=== PATIENT | female | born 1950 | race African-American/Black ===

== ENCOUNTER → 2016-12-30 | Outpatient (CLI) | payer MEDICARE, MEDICAID, OTHER ==
[~2016-12-30] MED LIST: ATROPINE 1% OP; BACTRIM DS 8001 TAB PO; BENZTROPINE1 MG PO; COGENTIN 1MG1 MG/TAB PO; DARVOCET-N-101 UDTAB PO; DEPAKOTE DR500 MG PO; DEPAKOTE500 MG PO; DILANTIN 100MG100 MG PO; DYAZIDE 25 MG-31 CAP PO; FENTANYL; FENTANYL 25 MCG TP; MOTRIN; MOTRIN 800800 MG/TAB PO; NEXIUM 40MG40 MG PO; NEXIUM PO; NEXIUM40 MG PO; NORCO 325 MG-7.1 TAB PO; PHENOBARBITAL; PHENOBARBITAL100 M1; PHENOBARBITAL32.4 MG PO; RISPERDAL 1M1 MG/TAB PO; VIMPAT100 MG PO; VIMPAT50 MG PO; [UNRECOGNIZED DRUG - OTHER]; [UNRECOGNIZED DRUG - OTHER]; [UNRECOGNIZED DRUG - OTHER]
[2016-12-30 16:32] LABS: BASO % 0.3 % (0.0-2.0); EOS # 0.1 (0.0-0.7); EOS % 1.7 % (0-4.0); GRAN % 46.2 % (42.2-75.2); HEMATOCRIT 39.8 % (37.0-47.0); HEMOGLOBIN 12.7 g/dl (12.5-16.0); LYMPH # 2.6 (1.2-3.4); LYMPH % 40.2 % (20.0-51.0); MEAN CELL VOLUME 98 fl (80.0-100.0); MEAN CORPUSCULAR HEMOGLOBIN 31 pg (27.0-31.0); MEAN CORPUSCULAR HGB CONC 32 g/dl (33.0-37.0); MEAN PLATELET VOLUME 9.7 fl (7.4-10.4); MONO # 0.8 (0.1-0.6); MONO % 11.6 % (1.7-9.3); PLATELET COUNT 185 K/mm3 (130-400); RED BLOOD COUNT 4.07 M/mm3 (4.10-5.30); REDCELL DISTRIBUTION WIDTH-CV 13.2 % (11.5-14.5); WHITE BLOOD COUNT 6.4 K/mm3 (4.8-10.8)
[2016-12-30 17:07] LABS: ADJUSTED CALCIUM 9.7 mg/dL (8.4-10.2); ALBUMIN 3.9 gm/dL (3.5-5.0); BILIRUBIN,TOTAL 0.5 mg/dL (0.0-1.0); CALCIUM 9.6 mg/dL (8.4-10.2); CREATININE, serum 0.88 mg/dL (0.52-1.25); POTASSIUM 3.9 mmol/L (3.4-5.0); TOTAL PROTEIN 7.6 gm/dL (6.4-8.2)
[2017-01-04 10:30] LABS: LACOSAMIDE 8.3 mcg/mL (())
== END ==
LOC: COL.LAB 16:07
PROVIDERS: Internal Medicine Cardiovascular Disease
DX: G40.89 Other seizures (principal)

== ENCOUNTER → 2017-11-07 | Outpatient (CLI) | payer MEDICARE, MEDICAID, OTHER ==
[2017-11-07 17:03] LABS: ALBUMIN 4.1 gm/dL (3.5-5.0); BILIRUBIN,TOTAL 0.4 mg/dL (0.0-1.0); CALCIUM 9.4 mg/dL (8.4-10.2); CREATININE, serum 0.79 mg/dL (0.52-1.25); POTASSIUM 3.8 mmol/L (3.4-5.0); TOTAL PROTEIN 7.6 gm/dL (6.4-8.2)
[2017-11-07 17:04] LABS: BASO % 0.3 % (0.0-2.0); EOS # 0.1 (0.0-0.7); EOS % 0.8 % (0-4.0); GRAN # 3.7 (1.4-6.5); HEMATOCRIT 38.7 % (37.0-47.0); HEMOGLOBIN 12.6 g/dl (12.5-16.0); LYMPH # 2.8 (1.2-3.4); LYMPH % 37.6 % (20.0-51.0); MEAN CELL VOLUME 98 fl (80.0-100.0); MEAN CORPUSCULAR HEMOGLOBIN 32 pg (27.0-31.0); MEAN CORPUSCULAR HGB CONC 33 g/dl (33.0-37.0); MEAN PLATELET VOLUME 9.9 fl (7.4-10.4); MONO # 0.9 (0.1-0.6); MONO % 12.2 % (1.7-9.3); PLATELET COUNT 190 K/mm3 (130-400); RED BLOOD COUNT 3.97 M/mm3 (4.10-5.30); REDCELL DISTRIBUTION WIDTH-CV 12.9 % (11.5-14.5)
[2017-11-07 17:08] LABS: VALPROIC ACID (DEPAKENE) 80.7 ug/mL (50.0-100.0)
[2017-11-07 23:24] LABS: PHENOBARBITAL 20 ug/mL (15-40)
== END ==
LOC: COL.LAB 16:16
PROVIDERS: Psychiatry & Neurology Neurology
DX: G40.409 Other generalized epilepsy and epileptic syndromes, not intractable, without status epilepticus (principal)

== ENCOUNTER → 2018-01-10 | Outpatient (CLI) | payer MEDICARE, MEDICAID, OTHER | LOC: MC.RAD 01-08 14:40 | DX: Z12.31 Encounter for screening mammogram for malignant neoplasm of breast (principal); M85.89 Other specified disorders of bone density and structure, multiple sites ==

== ENCOUNTER 2018-01-26 09:51 | Inpatient (IN) | payer MEDICARE, OTHER, MEDICAID ==
[2018-01-26] VITALS (565 sets, daily range): BP systolic 100–128; BP diastolic 71–86; PULSE 83–87; TEMP 96.7–98.7; O2SAT 93–100
[~2018-01-26] VITALS: Ht 170.2 cm; Wt 94.3 kg
[~2018-01-26 09:51] MED LIST changes: -ATROPINE 1% OP; +ATROPINE 2 ML2 ML PO
[2018-01-26 10:34] LABS: HEMATOCRIT 39.5 % (37.0-47.0); HEMOGLOBIN 13.1 g/dl (12.5-16.0); MEAN CELL VOLUME 94 fl (80.0-100.0); MEAN CORPUSCULAR HEMOGLOBIN 31 pg (27.0-31.0); MEAN CORPUSCULAR HGB CONC 33 g/dl (33.0-37.0); MEAN PLATELET VOLUME 9.6 fl (7.4-10.4); PLATELET COUNT 144 K/mm3 (130-400)
[2018-01-26 10:43] LABS: COLLECTION METHOD CLEAN CATCH
[2018-01-26 10:48] LABS: ALBUMIN 3.9 gm/dL (3.5-5.0); BILIRUBIN,TOTAL 0.5 mg/dL (0.0-1.0); CALCIUM 9.4 mg/dL (8.4-10.2); CREATININE, serum 1.54 mg/dL (0.52-1.25); POTASSIUM 4.3 mmol/L (3.4-5.0); TOTAL PROTEIN 7.5 gm/dL (6.4-8.2)
[2018-01-26 10:51] LABS: BAND 33 % (0-10); LYMPHOCYTE 14 % (20.0-51.0); METAMYELOCYTE 1 % (0-0); NEUTROPHILS 49 % (42.0-75.2)
[2018-01-26 10:52] LABS: PLATELET ESTIMATE NORMAL (NORMAL)
[2018-01-26 10:57] LABS: MUCOUS Present /lpf; PH 7 (5-8); URINE APPEARANCE Cloudy; URINE BACTERIA Rare /hpf; URINE BILIRUBIN Negative (NEGATIVE); URINE BLOOD Negative (NEGATIVE); URINE COLOR Yellow; URINE GLUCOSE Negative (NEGATIVE); URINE KETONE Trace (NEGATIVE); URINE LEUKOCYTE ESTERASE Trace (NEGATIVE); URINE NITRATE Negative (NEGATIVE); URINE PROTEIN(semi-quant) 1+ (NEGATIVE)
[2018-01-26] MEDS ORDERED: MYRBETR25MG PO (12:01)
[2018-01-26 12:39] LABS: INR 1.2 (0.8-3.0); PROTHROMBIN TIME 13.9 SECONDS (9.7-12.8)
[2018-01-26 15:00] LABS: ARTERIAL BLD GAS O2 SATURATION 93.9 % (92-100); ARTERIAL BLOOD GAS BASE EXCESS -1.6 (-2-2); ARTERIAL BLOOD GAS PCO2 33.7 mmHg (35-45); ARTERIAL BLOOD GAS PO2 72.3 mmHg (80-100); ARTERIAL BLOOD GAS pH 7.43 (7.35-7.45)
[2018-01-26 15:09] LABS: ARTERIAL BLOOD GAS pH 7.43 (7.35-7.45)
[2018-01-26 15:10] LABS: ARTERIAL BLD GAS O2 SATURATION 93.9 % (92-100); ARTERIAL BLOOD GAS BASE EXCESS -1.6 (-2-2); ARTERIAL BLOOD GAS PCO2 33.7 mmHg (35-45); ARTERIAL BLOOD GAS PO2 72.3 mmHg (80-100)
[2018-01-26] MEDS ORDERED: COLACE 100100 MG/CAP PO (18:35)
[2018-01-27] VITALS (1085 sets, daily range): BP systolic 97–131; BP diastolic 50–80; PULSE 70–92; TEMP 97.1–98.5; O2SAT 83–100
[2018-01-27 04:49] LABS: ARTERIAL BLD GAS O2 SATURATION 94.3 % (92-100); ARTERIAL BLOOD GAS BASE EXCESS -3.8 (-2-2); ARTERIAL BLOOD GAS PCO2 32.1 mmHg (35-45); ARTERIAL BLOOD GAS PO2 75.1 mmHg (80-100); ARTERIAL BLOOD GAS pH 7.41 (7.35-7.45)
[2018-01-27 06:12] LABS: MEAN CELL VOLUME 96 fl (80.0-100.0); MEAN CORPUSCULAR HGB CONC 33 g/dl (33.0-37.0); MEAN PLATELET VOLUME 9.9 fl (7.4-10.4); PLATELET COUNT 131 K/mm3 (130-400); RED BLOOD COUNT 3.51 M/mm3 (4.10-5.30); REDCELL DISTRIBUTION WIDTH-CV 13.2 % (11.5-14.5)
[2018-01-27 06:19] LABS: HEMATOCRIT 33.7 % (37.0-47.0); HEMOGLOBIN 11.1 g/dl (12.5-16.0); MEAN CORPUSCULAR HEMOGLOBIN 32 pg (27.0-31.0)
[2018-01-27 06:23] LABS: INR 1.2 (0.8-3.0); PROTHROMBIN TIME 13.9 SECONDS (9.7-12.8)
[2018-01-27 06:31] LABS: BILIRUBIN,TOTAL 0.3 mg/dL (0.0-1.0); CALCIUM 8.2 mg/dL (8.4-10.2); CREATININE, serum 0.76 mg/dL (0.52-1.25); POTASSIUM 3.6 mmol/L (3.4-5.0); TOTAL PROTEIN 6.1 gm/dL (6.4-8.2)
[2018-01-27 06:39] LABS: BAND 24 % (0-10); LYMPHOCYTE 24 % (20.0-51.0); NEUTROPHILS 35 % (42.0-75.2); PLATELET ESTIMATE NORMAL (NORMAL)
[2018-01-28 03:21] VITALS: BP 95/56; PULSE 66; TEMP 98.2
[2018-01-28 06:44] LABS: MEAN CELL VOLUME 96 fl (80.0-100.0); MEAN CORPUSCULAR HGB CONC 33 g/dl (33.0-37.0); MEAN PLATELET VOLUME 10.1 fl (7.4-10.4); PLATELET COUNT 125 K/mm3 (130-400); RED BLOOD COUNT 3.59 M/mm3 (4.10-5.30); REDCELL DISTRIBUTION WIDTH-CV 13.2 % (11.5-14.5)
[2018-01-28 06:55] LABS: HEMATOCRIT 34.4 % (37.0-47.0); HEMOGLOBIN 11.2 g/dl (12.5-16.0); MEAN CORPUSCULAR HEMOGLOBIN 31 pg (27.0-31.0)
[2018-01-28 07:02] LABS: ALBUMIN 3.1 gm/dL (3.5-5.0); BILIRUBIN,TOTAL 0.2 mg/dL (0.0-1.0); CALCIUM 8.7 mg/dL (8.4-10.2); CREATININE, serum 0.69 mg/dL (0.52-1.25); POTASSIUM 4.2 mmol/L (3.4-5.0); TOTAL PROTEIN 6.3 gm/dL (6.4-8.2)
[2018-01-28 07:17] LABS: INR 1.2 (0.8-3.0); PROTHROMBIN TIME 13.4 SECONDS (9.7-12.8)
[2018-01-28 08:27] VITALS: BP 123/83; PULSE 79; TEMP 97.3
[2018-01-28 08:36] LABS: BAND 12 % (0-10); HYPOCHROMIA 1+; LYMPHOCYTE 24 % (20.0-51.0); NEUTROPHILS 53 % (42.0-75.2); PLATELET ESTIMATE DECREASED (NORMAL)
[2018-01-28 12:50] VITALS: BP 125/70; PULSE 71; TEMP 98
[2018-01-28 14:03] LABS: FOLATE (FOLIC ACID) 7.7 ng/mL (7.0-31.4)
[2018-01-28 16:21] VITALS: BP 107/61; PULSE 77; TEMP 98.3
[2018-01-28 20:32] VITALS: BP 98/48; PULSE 80; TEMP 98.5
[2018-01-28 23:34] VITALS: BP 106/60; PULSE 72; TEMP 98
[2018-01-29 04:08] VITALS: BP 118/67; PULSE 74; TEMP 98.4
[2018-01-29 07:14] LABS: MEAN CELL VOLUME 96 fl (80.0-100.0); MEAN CORPUSCULAR HGB CONC 33 g/dl (33.0-37.0); MEAN PLATELET VOLUME 9.9 fl (7.4-10.4); PLATELET COUNT 125 K/mm3 (130-400); RED BLOOD COUNT 3.39 M/mm3 (4.10-5.30); REDCELL DISTRIBUTION WIDTH-CV 13.2 % (11.5-14.5)
[2018-01-29 07:16] LABS: HEMATOCRIT 32.4 % (37.0-47.0); HEMOGLOBIN 10.8 g/dl (12.5-16.0); MEAN CORPUSCULAR HEMOGLOBIN 32 pg (27.0-31.0)
[2018-01-29 07:24] LABS: ALBUMIN 2.8 gm/dL (3.5-5.0); BILIRUBIN,TOTAL 0.1 mg/dL (0.0-1.0); CALCIUM 8.6 mg/dL (8.4-10.2); CREATININE, serum 0.76 mg/dL (0.52-1.25); POTASSIUM 4.1 mmol/L (3.4-5.0); TOTAL PROTEIN 5.8 gm/dL (6.4-8.2)
[2018-01-29 07:28] LABS: INR 1.1 (0.8-3.0); PROTHROMBIN TIME 13.2 SECONDS (9.7-12.8)
[2018-01-29 08:00] LABS: BAND 2 % (0-10); LYMPHOCYTE 28 % (20.0-51.0); METAMYELOCYTE 3 % (0-0); MYELOCYTE 1 % (0-0); NEUTROPHILS 61 % (42.0-75.2)
[2018-01-29 08:03] VITALS: BP 115/71; PULSE 85; TEMP 98.2
[2018-01-29] MEDS ORDERED: OMNICEF 300MG300 MG PO (09:24)
== END 2018-01-29 11:23 | disposition home health service (06) | DRG 871 ==
LOC: COL.ER 09:51 → MEDICAL 11:24 → ICU 11:24 → MEDICAL 11:25 → ICU 13:10 → MEDICAL 01-27 18:45
PROVIDERS: Emergency Medicine; Internal Medicine; Physician Assistant
DX: A41.51 Sepsis due to Escherichia coli [E. coli] (principal); R65.21 Severe sepsis with septic shock; N39.0 Urinary tract infection, site not specified; N17.9 Acute kidney failure, unspecified; E87.2 Acidosis; E46 Unspecified protein-calorie malnutrition; B96.20 Unspecified Escherichia coli [E. coli] as the cause of diseases classified elsewhere; G80.9 Cerebral palsy, unspecified; F79 Unspecified intellectual disabilities; F20.9 Schizophrenia, unspecified; J06.9 Acute upper respiratory infection, unspecified; G40.909 Epilepsy, unspecified, not intractable, without status epilepticus; Z86.12 Personal history of poliomyelitis; D64.9 Anemia, unspecified; R73.9 Hyperglycemia, unspecified; E83.51 Hypocalcemia
CPT/HCPCS: 99222-AI; 99223-AI; 99232-AI; 99239; G8978-GP; G8979-GP; G8987-GO; G8988-GO; J0696; J1644; J1720; J7030

== ENCOUNTER → 2018-05-07 | Outpatient (REF) ==
[~2018-05-07] MED LIST changes: +CEFTIN500 MG PO; +COLACE 100100 MG/CAP PO; +MAXIMUM D310000 IU PO; +MYRBETR25MG PO; +MYRBETR50MG PO; +OMNICEF 300MG300 MG PO
[2018-05-07 17:09] LABS: VALPROIC ACID (DEPAKENE) 69.8 ug/mL (50.0-100.0)
[2018-05-07 17:12] LABS: THYROID STIMULATING HORMONE 1.18 uIU/mL (0.465-4.680)
== END ==
LOC: ZLAB.WCH 16:08
PROVIDERS: Internal Medicine
DX: Z01.89 Encounter for other specified special examinations (principal)

== ENCOUNTER → 2018-10-02 | Outpatient (CLI) | payer MEDICARE, OTHER, MEDICAID ==
[2018-10-02 16:29] LABS: BASO % 0.3 % (0.0-2.0); EOS % 0.5 % (0-4.0); GRAN # 3.9 (1.4-6.5); GRAN % 50.4 % (42.2-75.2); HEMATOCRIT 40.1 % (37.0-47.0); HEMOGLOBIN 13.1 g/dl (12.5-16.0); LYMPH # 2.9 (1.2-3.4); LYMPH % 36.8 % (20.0-51.0); MEAN CELL VOLUME 99 fl (80.0-100.0); MEAN CORPUSCULAR HEMOGLOBIN 32 pg (27.0-31.0); MEAN CORPUSCULAR HGB CONC 33 g/dl (33.0-37.0); MEAN PLATELET VOLUME 9.3 fl (7.4-10.4); MONO # 0.9 (0.1-0.6); MONO % 11.7 % (1.7-9.3); PLATELET COUNT 189 K/mm3 (130-400); RED BLOOD COUNT 4.07 M/mm3 (4.10-5.30)
[2018-10-02 16:42] LABS: BILIRUBIN,TOTAL 0.3 mg/dL (0.0-1.0); CALCIUM 9.3 mg/dL (8.4-10.2); CREATININE, serum 0.8 mg/dL (0.52-1.25); POTASSIUM 4.3 mmol/L (3.4-5.0); TOTAL PROTEIN 7.4 gm/dL (6.4-8.2)
[2018-10-02 17:16] LABS: VALPROIC ACID (DEPAKENE) 106.3 ug/mL (50.0-100.0)
[2018-10-03 19:28] LABS: PHENOBARBITAL 22 ug/mL (15-40)
== END ==
LOC: COL.LAB 16:07
PROVIDERS: Psychiatry & Neurology Neurology
DX: R56.9 Unspecified convulsions (principal)

== ENCOUNTER → 2018-10-25 | Outpatient (CLI) | payer MEDICARE, OTHER, MEDICAID ==
[2018-10-26 10:18] LABS: MUCOUS Present /lpf; PH 5 (5-8); URINE APPEARANCE Clear; URINE BACTERIA Occasional /hpf; URINE BILIRUBIN Negative (NEGATIVE); URINE BLOOD 1+ (NEGATIVE); URINE COLOR Yellow; URINE GLUCOSE Negative (NEGATIVE); URINE KETONE Trace (NEGATIVE); URINE LEUKOCYTE ESTERASE 2+ (NEGATIVE); URINE NITRATE Negative (NEGATIVE); URINE PROTEIN(semi-quant) 1+ (NEGATIVE); URINE RBC 20-50 /hpf; URINE WBC 20-50 /hpf
[2018-10-27 11:39] LABS: COLLECTION METHOD CLEAN CATCH
== END ==
LOC: COL.LAB 16:23
PROVIDERS: Internal Medicine
DX: N39.0 Urinary tract infection, site not specified (principal); N39.46 Mixed incontinence

== ENCOUNTER → 2018-12-11 | Outpatient (CLI) | payer MEDICARE, OTHER, MEDICAID ==
[2018-12-11 18:32] LABS: COLLECTION METHOD CATHETER
[2018-12-11 18:52] LABS: MUCOUS Present /lpf; PH 6 (5-8); URINE APPEARANCE Turbid; URINE BACTERIA Rare /hpf; URINE BILIRUBIN Negative (NEGATIVE); URINE BLOOD Negative (NEGATIVE); URINE COLOR Amber; URINE GLUCOSE Negative (NEGATIVE); URINE KETONE Trace (NEGATIVE); URINE LEUKOCYTE ESTERASE 3+ (NEGATIVE); URINE NITRATE Positive (NEGATIVE); URINE PROTEIN(semi-quant) 2+ (NEGATIVE); URINE RBC 20-50 /hpf; URINE WBC >50 /hpf
== END ==
LOC: COL.LAB 16:25
PROVIDERS: Internal Medicine
DX: N30.00 Acute cystitis without hematuria (principal); N39.46 Mixed incontinence

== ENCOUNTER 2019-07-05 11:59 | Outpatient (CLI) | payer MEDICARE, OTHER, MEDICAID ==
[~2019-07-05] VITALS: Ht 165.1 cm; Wt 95.4 kg
[~2019-07-05 11:59] MED LIST changes: +ATROPINE 2 ML2 ML OP; -ATROPINE 2 ML2 ML PO
[2019-07-05 12:33] VITALS: BP 122/85; PULSE 75; TEMP 98.2
[2019-07-05 13:28] LABS: COLLECTION METHOD CATHETER
[2019-07-05 13:34] LABS: BUDDING YEAST Present /hpf; MUCOUS Present /lpf; PH 6 (5-8); SQUAMOUS EPITHELIAL 0-2 /hpf; URINE APPEARANCE Hazy; URINE BACTERIA Occasional /hpf; URINE BILIRUBIN Negative (NEGATIVE); URINE BLOOD Negative (NEGATIVE); URINE COLOR Yellow; URINE GLUCOSE Negative (NEGATIVE); URINE KETONE Trace (NEGATIVE); URINE LEUKOCYTE ESTERASE 2+ (NEGATIVE); URINE NITRATE Positive (NEGATIVE); URINE PROTEIN(semi-quant) Negative (NEGATIVE); URINE RBC 0-2 /hpf; URINE UROBILINOGEN >=4.0 mg/dL (NEGATIVE)
== END 2019-07-05 13:50 | disposition home or self-care (01) ==
LOC: COL.LAB 11:59 → EUO 11:59
PROVIDERS: Internal Medicine
DX: N30.00 Acute cystitis without hematuria (principal); N39.46 Mixed incontinence

== ENCOUNTER → 2020-04-22 | Outpatient (CLI) | payer MEDICARE, OTHER, MEDICAID | LOC: MC.RAD 08:56 | DX: Z12.31 Encounter for screening mammogram for malignant neoplasm of breast (principal); N63.10 Unspecified lump in the right breast, unspecified quadrant; N63.20 Unspecified lump in the left breast, unspecified quadrant ==

== ENCOUNTER → 2020-04-29 | Outpatient (CLI) | payer MEDICARE, OTHER, MEDICAID | LOC: MC.RAD 08:58 | DX: N63.20 Unspecified lump in the left breast, unspecified quadrant (principal) ==

== ENCOUNTER → 2020-12-03 | Outpatient (CLI) | payer MEDICARE, OTHER, MEDICAID ==
[2020-12-03 14:38] LABS: COLLECTION METHOD CLEAN CATCH
[2020-12-03 15:04] LABS: MUCOUS Present /lpf; PH 6 (5-8); URINE APPEARANCE Cloudy; URINE BACTERIA Moderate /hpf; URINE BILIRUBIN Negative (NEGATIVE); URINE BLOOD Negative (NEGATIVE); URINE COLOR Yellow; URINE GLUCOSE Negative (NEGATIVE); URINE KETONE Trace (NEGATIVE); URINE LEUKOCYTE ESTERASE 3+ (NEGATIVE); URINE NITRATE Negative (NEGATIVE); URINE PROTEIN(semi-quant) 1+ (NEGATIVE); URINE UROBILINOGEN >=4.0 mg/dL (NEGATIVE)
== END ==
LOC: COL.LAB 12:08
DX: N39.0 Urinary tract infection, site not specified (principal)

== ENCOUNTER → 2021-04-13 | Outpatient (REF) ==
[~2021-04-13] MED LIST changes: +AZO-CRANBERRY450 MG PO; +DEPAKOTE 250MG250 MG PO; +FOSAMAX 70MG TA70 MG PO; +PROBIOTIC 2 BI1 EACH PO; +STOOL SOFTENER100 M2 PO; +VITAMIND3 5000 PO; +ZAROXOLYN 2.52.5 MG PO
== END ==
LOC: ZLAB.WCH 15:44
DX: Z01.89 Encounter for other specified special examinations (principal)

== ENCOUNTER 2021-05-24 13:27 | Observation (INO) | payer MEDICARE, OTHER, MEDICAID ==
[~2021-05-24] VITALS: Ht 165.1 cm; Wt 98.8 kg
[~2021-05-24 13:27] MED LIST changes: -AZO-CRANBERRY450 MG PO; -DEPAKOTE 250MG250 MG PO; -FOSAMAX 70MG TA70 MG PO; -PROBIOTIC 2 BI1 EACH PO; -STOOL SOFTENER100 M2 PO; -VITAMIND3 5000 PO; -ZAROXOLYN 2.52.5 MG PO
[2021-05-24 14:08] LABS: BASO % 0.3 % (0.0-2.0); GRAN # 5.7 (1.4-6.5); GRAN % 76.5 % (42.2-75.2); HEMATOCRIT 38.4 % (37.0-47.0); HEMOGLOBIN 13.1 g/dl (12.5-16.0); LYMPH # 0.9 (1.2-3.4); MEAN CELL VOLUME 93 fl (80.0-100.0); MEAN CORPUSCULAR HEMOGLOBIN 32 pg (27.0-31.0); MEAN CORPUSCULAR HGB CONC 34 g/dl (33.0-37.0); MEAN PLATELET VOLUME 9.3 fl (7.4-10.4); MONO # 0.8 (0.1-0.6); MONO % 10.8 % (1.7-9.3); PLATELET COUNT 175 K/mm3 (130-400); RED BLOOD COUNT 4.15 M/mm3 (4.10-5.30); REDCELL DISTRIBUTION WIDTH-CV 12.4 % (11.5-14.5)
[2021-05-24 14:11] LABS: COLLECTION METHOD CATHETER
[2021-05-24 14:15] LABS: INR 1.2 (0.8-3.0); PROTHROMBIN TIME 13.1 SECONDS (9.7-12.8)
[2021-05-24 14:21] LABS: LACTIC ACID 1.6 mmol/L (0.4-2.0)
[2021-05-24 14:22] LABS: MUCOUS Present /lpf; PH 7 (5-8); URINE APPEARANCE Clear; URINE BACTERIA None Seen /hpf; URINE BILIRUBIN Negative (NEGATIVE); URINE BLOOD Negative (NEGATIVE); URINE COLOR Yellow; URINE GLUCOSE Negative (NEGATIVE); URINE KETONE Trace (NEGATIVE); URINE LEUKOCYTE ESTERASE Negative (NEGATIVE); URINE NITRATE Negative (NEGATIVE); URINE PROTEIN(semi-quant) Negative (NEGATIVE)
[2021-05-24 14:26] LABS: TRICYCLIC ANTIDEPRESS URINE NEGATIVE
[2021-05-24 14:27] LABS: ALANINE AMINOTRANSFERASE 41 U/L (4-34); ALKALINE PHOSPHATASE 61 U/L (50-136); ANION GAP 8 mmol/L (7-16); AST,SGOT 190 U/L (15-37); BILIRUBIN,TOTAL 0.3 mg/dL (0.0-1.0); BLOOD UREA NITROGEN 13 mg/dL (7-17); CALCIUM 9.5 mg/dL (8.4-10.2); CARBON DIOXIDE 27 mmol/L (22-30); CHLORIDE 92 mmol/L (98-107); CREATININE, serum 0.67 (0.52-1.25); GLUCOSE 155 mg/dL (74-106); POTASSIUM 3.2 mmol/L (3.4-5.0); SODIUM 128 mmol/L (137-145); TOTAL PROTEIN 7.3 gm/dL (6.4-8.2)
[2021-05-24 14:29] LABS: ALCOHOL(ethanol),MEDICAL < 10 mg/dL
[2021-05-24 14:32] LABS: VALPROIC ACID (DEPAKENE) 84.8 ug/mL (50.0-100.0)
[2021-05-24 14:39] LABS: TROPONIN-I 0.016 ng/mL (0.000-0.035)
[2021-05-24] MEDS ORDERED: PHENOBARBITAL32.4 MG PO (17:30)
[2021-05-24] MEDS ORDERED: VITAMIND3 5000 PO (17:33)
[2021-05-24] MEDS ORDERED: STOOL SOFTENER100 M2 PO (17:33)
[2021-05-24] MEDS ORDERED: AZO-CRANBERRY450 MG PO (20:17)
[2021-05-24] MEDS ORDERED: PROBIOTIC 2 BI1 EACH PO (20:23)
[2021-05-24] MEDS ORDERED: DEPAKOTE 250MG250 MG PO (20:27)
[2021-05-24] MEDS ORDERED: ZAROXOLYN 2.52.5 MG PO (20:28)
[2021-05-24] MEDS ORDERED: FOSAMAX 70MG TA70 MG PO (20:30)
--- NOTE | 2021-05-24 20:30 | NUR ---
Arrived to room 346 via stretcher from ED. Transferred to bed with three assist. Med rec complete with the help of caregiver-patients sister. Admission assessment complete. VS stable. Is alert but not oriented. Unable to follow commands or answer questions. INT to right and left AC flush without difficulty. Plan of care discussed with sister for IV fluids and replacing potassium over night. Verbalizes understanding/denies questions/concerns. Call light in reach. Will monitor.
--- NOTE | 2021-05-24 21:45 | NUR ---
Large amount of emesis at this time-clear thick fluid. Bedbath given-linens changed. Phenergan ordered and given per dr order. Repositioned in bed. Call light in reach/bed alarm on. Will monitor.
[2021-05-25] VITALS (7 sets, daily range): BP systolic 102–132; BP diastolic 55–82; PULSE 70–91; TEMP 97.1–100
[2021-05-25 00:42] LABS: CALCIUM 8.5 mg/dL (8.4-10.2); CREATININE, serum 0.65 (0.52-1.25); POTASSIUM 3.3 mmol/L (3.4-5.0)
--- NOTE | 2021-05-25 04:51 | NUR ---
Incontinent of urine-large amount. Bed bath given/linens changed. Purewick placed. Repositioned in bed-feet elevated due to swelling. Denies nausea at this time-asking when dinner will be ready. Denies current needs. Call light in reach. Will monitor.
[2021-05-25 07:24] LABS: GRAN # 4.9 (1.4-6.5); HEMATOCRIT 37.4 % (37.0-47.0); HEMOGLOBIN 12.6 g/dl (12.5-16.0); LYMPH # 1.8 (1.2-3.4); LYMPH % 23.2 % (20.0-51.0); MEAN CELL VOLUME 93 fl (80.0-100.0); MEAN CORPUSCULAR HEMOGLOBIN 31 pg (27.0-31.0); MEAN CORPUSCULAR HGB CONC 34 g/dl (33.0-37.0); MEAN PLATELET VOLUME 10.1 fl (7.4-10.4); MONO # 1.2 (0.1-0.6); MONO % 14.5 % (1.7-9.3); PLATELET COUNT 168 K/mm3 (130-400); RED BLOOD COUNT 4.01 M/mm3 (4.10-5.30); REDCELL DISTRIBUTION WIDTH-CV 12.6 % (11.5-14.5)
[2021-05-25 07:33] LABS: CALCIUM 8.6 mg/dL (8.4-10.2); CREATININE, serum 0.65 (0.52-1.25); POTASSIUM 3.6 mmol/L (3.4-5.0)
[2021-05-25 10:22] LABS: CALCIUM 8.6 mg/dL (8.4-10.2); CREATININE, serum 0.63 (0.52-1.25); MAGNESIUM 2.3 mg/dL (1.6-2.3); POTASSIUM 3.6 mmol/L (3.4-5.0)
--- NOTE | 2021-05-25 12:00 | NUR ---
Patient sister is here. Patient is not able to answer most questions. She can answer some yes and no basic questions. Denies pain and nausea this morning. Stated she is starving. She slept most the morning and was hard to wake at times. Her sister said she usually wakes up early, explained might be the medications and not feeling well. She worked with ST, she was able to take her medications without issues. Pills given whole in pudding, she did not have any issues. Her sister was helping her eat lunch. 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 Purewick in place, no other changes at this time. Call light within reach.
--- NOTE | 2021-05-25 13:49 | NUR ---
Initial visit; Patient thanked Energy Assistant for looking in on her, offering prayer and god's blessings.
--- NOTE | 2021-05-25 14:10 | NUR ---
Sw met with the pt. The pt was delayed in answering some of my questions. The pt informed Kyleigh that she lives at home with her sister, Bhavani Roman (ph# [phone]). The pt informed Kyleigh that she has a wheelchair and cane. The pt did not know where she gets her medications, but in the charts it states [facility] and her PCP is Dr. Campbell. No other needs stated at this time. Sw to wait further recommendations and follow up as needed. Her sister was not in the room. Her sister wanted to know if she could have HH services go to [facility]? Sw called Bhavani and she informed Sw that her sister goes to [facility] from 7am-4:15pm everyday and she was wondering if HH with PT would come to [facility] or pick her up. Sw informed Bhavani she would call [facility] to see if they offered PT their and would get back to her tommorrow. Kyleigh called [facility] and they do not offer PT/OT services, but the nurse informed Kyleigh that she would pass my number to her engineering design supervisor to see if HH would be allowed to come in to give her services. Sw to await phone call. D/c: Home with Family, pending HH services.
--- NOTE | 2021-05-25 22:22 | NUR ---
Patient temp is 100.0/ giving sponge bath and down to 99.5. Lea notified and she will put order for Tylenol.
[2021-05-26 00:05] VITALS: BP 114/52; PULSE 87; TEMP 99.9
[2021-05-26 04:20] VITALS: BP 106/58; PULSE 73; TEMP 99.1
[2021-05-26 07:00] LABS: BASO % 0.3 % (0.0-2.0); EOS % 0.2 % (0-4.0); GRAN # 2.7 (1.4-6.5); GRAN % 45.7 % (42.2-75.2); HEMOGLOBIN 11.1 g/dl (12.5-16.0); LYMPH # 2.2 (1.2-3.4); LYMPH % 38.4 % (20.0-51.0); MEAN CELL VOLUME 96 fl (80.0-100.0); MEAN CORPUSCULAR HEMOGLOBIN 32 pg (27.0-31.0); MEAN CORPUSCULAR HGB CONC 33 g/dl (33.0-37.0); MEAN PLATELET VOLUME 9.8 fl (7.4-10.4); MONO # 0.9 (0.1-0.6); MONO % 15.2 % (1.7-9.3); PLATELET COUNT 158 K/mm3 (130-400); RED BLOOD COUNT 3.49 M/mm3 (4.10-5.30); REDCELL DISTRIBUTION WIDTH-CV 12.9 % (11.5-14.5)
[2021-05-26 07:08] LABS: HEMATOCRIT 33.6 % (37.0-47.0)
[2021-05-26 07:24] LABS: CALCIUM 8.3 mg/dL (8.4-10.2); CREATININE, serum 0.63 (0.52-1.25); POTASSIUM 3.7 mmol/L (3.4-5.0)
[2021-05-26 07:28] VITALS: BP 107/58; PULSE 65; TEMP 98.3
--- NOTE | 2021-05-26 10:34 | NUR ---
Kyleigh spoke with sister of pt about HH options. Sw faxed over d/c orders to [facility] for PT services. Pt d/c today 05/26. Sw to await and follow up.
--- NOTE | 2021-05-26 11:45 | NUR ---
Patient is discharging home. Discharge instructions discussed with her sister. No questions verbalized. INT's discontinued. Her sister is packing up her belongings. Copies of discharge instructions sent with patient. Explained home health will call with meeting time for the sister. No questions verbalized. Patient walked out via wheel chair by Suzi REYES.
--- NOTE | 2021-05-26 13:58 | NUR ---
Kyleigh made referral for HH services for pt at [facility]. [facility] called me back and informed Sw that they cannot go to [facility] to provides services for the pt. She informed Sw that she called the pt Bhavani duff and she informed HH worker that she spoke with [facility] and they can provide the pt with PT services. DPOA Bhavani will not be using HH services at this time because she does not want to uproot the pt from going to her daily visits with [facility] and HH cannot come to [facility]. Kyleigh will stand by if needed.
== END 2021-05-26 11:45 | disposition home or self-care (01) ==
LOC: COL.ER 13:27 → SURG 19:10
PROVIDERS: Emergency Medicine; Physician Assistant; Student in an Organized Health Care Education/Training Program; ADMIT Family Medicine
DX: G93.40 Encephalopathy, unspecified (principal); R11.2 Nausea with vomiting, unspecified; G80.9 Cerebral palsy, unspecified; F79 Unspecified intellectual disabilities; G40.901 Epilepsy, unspecified, not intractable, with status epilepticus; F20.9 Schizophrenia, unspecified; P74.22 Hyponatremia of newborn; D64.9 Anemia, unspecified; E87.6 Hypokalemia; K21.9 Gastro-esophageal reflux disease without esophagitis; Z86.12 Personal history of poliomyelitis; Z79.899 Other long term (current) drug therapy; Z20.822 Contact with and (suspected) exposure to COVID-19
CPT/HCPCS: 99223-AI; C9113; G0378; J1650; J2405; J2550; J3475; J3480; J7030; Q9967

== ENCOUNTER → 2021-08-06 | Outpatient (CLI) | payer MEDICARE, OTHER, MEDICAID ==
[~2021-08-06] MED LIST changes: +AZO-CRANBERRY450 MG PO; +DEPAKOTE 250MG250 MG PO; +FOSAMAX 70MG TA70 MG PO; +PROBIOTIC 2 BI1 EACH PO; +STOOL SOFTENER100 M2 PO; +VITAMIND3 5000 PO; +ZAROXOLYN 2.52.5 MG PO
[2021-08-06 15:00] LABS: BASO % 0.3 % (0.0-2.0); EOS # 0.1 K/mm3 (0.0-0.7); GRAN # 3.2 K/mm3 (1.4-6.5); HEMOGLOBIN 12.7 g/dl (12.5-16.0); LYMPH % 33.2 % (20.0-51.0); MEAN CELL VOLUME 98 fl (80.0-100.0); MEAN CORPUSCULAR HEMOGLOBIN 32 pg (27.0-31.0); MEAN CORPUSCULAR HGB CONC 33 g/dl (33.0-37.0); MEAN PLATELET VOLUME 9.3 fl (7.4-10.4); MONO # 0.8 K/mm3 (0.1-0.6); MONO % 12.3 % (1.7-9.3); PLATELET COUNT 181 K/mm3 (130-400); REDCELL DISTRIBUTION WIDTH-CV 12.7 % (11.5-14.5)
[2021-08-06 15:29] LABS: ALBUMIN 3.4 gm/dL (3.4-4.8); BILIRUBIN,TOTAL 0.2 mg/dL (0.2-1.2); CALCIUM 9.2 mg/dL (8.4-10.2); CREATININE, serum 0.89 mg/dL (0.57-1.11); POTASSIUM 3.9 mmol/L (3.5-4.5); TOTAL PROTEIN 6.7 gm/dL (6.2-8.1); VALPROIC ACID (DEPAKENE) 63.9 ug/mL (43.5-90.5)
== END ==
LOC: COL.LAB 14:31
PROVIDERS: Psychiatry & Neurology Neurology
DX: Z79.899 Other long term (current) drug therapy (principal); G40.909 Epilepsy, unspecified, not intractable, without status epilepticus

== ENCOUNTER 2022-04-03 10:54 | Emergency (ER) | payer MEDICARE, OTHER, MEDICAID ==
[~2022-04-03] VITALS: Ht 165.1 cm; Wt 93.2 kg
[2022-04-03 10:58] VITALS: TEMP 98.1
[2022-04-03 11:20] LABS: BASO % 0.1 % (0.0-2.0); EOS % 0.1 % (0.0-4.0); GRAN # 7.2 K/mm3 (1.4-6.5); GRAN % 75.4 % (42.2-75.2); HEMOGLOBIN 12.9 g/dl (12.5-16.0); LYMPH # 1.2 K/mm3 (1.2-3.4); LYMPH % 12.8 % (20.0-51.0); MEAN CELL VOLUME 96 fl (80.0-100.0); MEAN CORPUSCULAR HEMOGLOBIN 32 pg (27-31); MEAN CORPUSCULAR HGB CONC 33 g/dl (33.0-37.0); MEAN PLATELET VOLUME 9.2 fl (7.4-10.4); MONO # 1.1 K/mm3 (0.1-0.6); MONO % 11.3 % (1.7-9.3); PLATELET COUNT 166 K/mm3 (130-400); RED BLOOD COUNT 4.06 M/mm3 (4.10-5.30); REDCELL DISTRIBUTION WIDTH-CV 13.1 % (11.5-14.5)
[2022-04-03 11:41] LABS: ALBUMIN 3.5 gm/dL (3.4-4.8); BILIRUBIN,TOTAL 0.4 mg/dL (0.2-1.2); CALCIUM 9.3 mg/dL (8.4-10.2); CREATININE, serum 0.98 mg/dL (0.57-1.11); POTASSIUM 3.9 mmol/L (3.5-4.5); TOTAL PROTEIN 6.7 gm/dL (6.2-8.1)
[2022-04-03 11:45] LABS: COLLECTION METHOD CATHETER
[2022-04-03 11:58] LABS: MUCOUS Present (NOT PRESENT); PH 6 (5-8); URINE APPEARANCE Hazy (CLEAR/HAZY); URINE BACTERIA Rare /hpf (NONE SEEN); URINE BILIRUBIN Negative (NEGATIVE); URINE BLOOD Negative (NEGATIVE); URINE COLOR Yellow (YELLOW); URINE GLUCOSE Negative (NEGATIVE); URINE KETONE Trace (NEGATIVE); URINE LEUKOCYTE ESTERASE Negative (NEGATIVE); URINE NITRATE Negative (NEGATIVE); URINE PROTEIN(semi-quant) 1+ (NEGATIVE); URINE UROBILINOGEN Negative (NEGATIVE)
[2022-04-03 14:49] VITALS: BP 136/83; PULSE 88
[2022-04-04] MEDS ORDERED: CEPHALEXIN500 M1 PO (20:21)
[2022-04-04] MEDS ORDERED: ATROPINE 2 ML2 ML OU (20:22)
[2022-04-04] MEDS ORDERED: NORCO 325 MG-7.1 TAB PO (20:22)
[2022-04-05] MEDS ORDERED: ATROPINE 2 ML2 ML PO (10:39)
== END 2022-04-03 14:49 | disposition home or self-care (01) ==
LOC: COL.ER 10:54
PROVIDERS: Nurse Practitioner
DX: I95.9 Hypotension, unspecified (principal)
CPT/HCPCS: J7030

== ENCOUNTER 2022-05-16 18:42 | Emergency (ER) | payer MEDICARE, OTHER, MEDICAID ==
[~2022-05-16] VITALS: Ht 162.6 cm; Wt 97.7 kg
[~2022-05-16 18:42] MED LIST changes: +ATROPINE 2 ML2 ML OU; +ATROPINE 2 ML2 ML PO; +CEPHALEXIN500 M1 PO
[2022-05-16 18:53] VITALS: TEMP 97.7
[2022-05-16 20:51] LABS: BASO % 0.3 % (0.0-2.0); EOS % 0.3 % (0.0-4.0); GRAN # 3.7 K/mm3 (1.4-6.5); GRAN % 53.6 % (42.2-75.2); HEMOGLOBIN 11.7 g/dl (12.5-16.0); LYMPH # 2.1 K/mm3 (1.2-3.4); LYMPH % 30.4 % (20.0-51.0); MEAN CELL VOLUME 97 fl (80.0-100.0); MEAN CORPUSCULAR HEMOGLOBIN 32 pg (27-31); MEAN CORPUSCULAR HGB CONC 33 g/dl (33.0-37.0); MEAN PLATELET VOLUME 8.7 fl (7.4-10.4); MONO % 15.1 % (1.7-9.3); PLATELET COUNT 325 K/mm3 (130-400); REDCELL DISTRIBUTION WIDTH-CV 13.2 % (11.5-14.5)
[2022-05-16 20:58] LABS: HEMATOCRIT 35.9 % (37.0-47.0)
[2022-05-16 21:11] LABS: ALANINE AMINOTRANSFERASE 9 U/L (0-55); ALBUMIN 3.5 gm/dL (3.4-4.8); ALKALINE PHOSPHATASE 205 U/L (40-150); ANION GAP 15 mmol/L (7-16); AST,SGOT 20 U/L (5-34); BILIRUBIN,TOTAL 0.3 mg/dL (0.2-1.2); BLOOD UREA NITROGEN 9 mg/dL (10-20); CALCIUM 9.4 mg/dL (8.4-10.2); CARBON DIOXIDE 22 mmol/L (23-31); CHLORIDE 102 mmol/L (98-107); GLUCOSE 103 mg/dL (70-99); POTASSIUM 4.2 mmol/L (3.5-4.5); SODIUM 139 mmol/L (136-145); TOTAL PROTEIN 7.2 gm/dL (6.2-8.1)
[2022-05-16 21:21] LABS: TROPONIN-I < 0.010 ng/mL (0.00-0.033)
[2022-05-16 22:48] LABS: COLLECTION METHOD CLEAN CATCH
[2022-05-16 22:55] LABS: MUCOUS Present (NOT PRESENT); PH 5 (5-8); SQUAMOUS EPITHELIAL 20-50 /hpf (0-10); URINE APPEARANCE Cloudy (CLEAR/HAZY); URINE BACTERIA Rare /hpf (NONE SEEN); URINE BLOOD Negative (NEGATIVE); URINE COLOR Yellow (YELLOW); URINE GLUCOSE Negative (NEGATIVE); URINE KETONE Trace (NEGATIVE); URINE NITRATE Negative (NEGATIVE); URINE PROTEIN(semi-quant) 1+ (NEGATIVE); URINE RBC 0-2 /hpf (0-2)
[2022-05-16] MEDS ORDERED: CEPHALEXIN500 M1 PO (23:01)
[2022-05-16 23:20] VITALS: BP 127/57; PULSE 85
== END 2022-05-16 23:20 | disposition home or self-care (01) ==
LOC: COL.ER 18:42
PROVIDERS: Emergency Medicine
DX: M79.89 Other specified soft tissue disorders (principal); N39.0 Urinary tract infection, site not specified; Z20.822 Contact with and (suspected) exposure to COVID-19
CPT/HCPCS: J1940

== ENCOUNTER 2022-06-14 15:43 | Outpatient (CLI) | payer MEDICARE, OTHER, MEDICAID ==
[2022-06-14 16:17] VITALS: BP 122/91; PULSE 95; TEMP 98.8
[2022-06-14 16:22] LABS: COLLECTION METHOD CATHETER
[2022-06-14 16:39] LABS: MUCOUS Present (NOT PRESENT); URINE APPEARANCE Hazy (CLEAR/HAZY); URINE BACTERIA Rare /hpf (NONE SEEN); URINE BLOOD TRACE-INTACT (NEGATIVE); URINE COLOR Yellow (YELLOW); URINE GLUCOSE Negative (NEGATIVE); URINE KETONE TRACE (NEGATIVE); URINE NITRATE Negative (NEGATIVE); URINE PROTEIN(semi-quant) Negative (NEGATIVE); URINE RBC 0-2 /hpf (0-2); URINE UROBILINOGEN 0.2 E.U/dL (0.2-1.0)
== END 2022-06-14 16:40 | disposition home or self-care (01) ==
LOC: EUO 15:43
PROVIDERS: Internal Medicine
DX: R33.8 Other retention of urine (principal)

== ENCOUNTER → 2022-09-08 | Outpatient (CLI) | payer MEDICARE, OTHER, MEDICAID | LOC: COL.RAD 13:00 → COL.CARD 09-12 10:00 → COL.RAD 09-13 13:00 → COL.CARD 09-13 13:00 → COL.RAD 09-13 15:00 | DX: J32.2 Chronic ethmoidal sinusitis (principal); G80.9 Cerebral palsy, unspecified; G40.419 Other generalized epilepsy and epileptic syndromes, intractable, without status epilepticus; M62.81 Muscle weakness (generalized); G31.9 Degenerative disease of nervous system, unspecified; I67.82 Cerebral ischemia; I63.512 Cerebral infarction due to unspecified occlusion or stenosis of left middle cerebral artery; Z79.899 Other long term (current) drug therapy ==

== ENCOUNTER 2022-11-08 10:17 | Outpatient (RCR) | payer MEDICARE, OTHER, MEDICAID ==
[2022-12-15] MEDS ORDERED: MOBIC15 MG PO (18:50)
[2022-12-15] MEDS ORDERED: PLAVIX 75MG TAB75 MG PO (18:51)
[2022-12-15] MEDS ORDERED: LIORESAL 1010 MG/TAB (18:51)
[2022-12-15] MEDS ORDERED: PHENOBARBITAL32.4 MG PO (21:21)
[2022-12-15] MEDS ORDERED: D3-5050000 IU PO (21:24)
[2022-12-15] MEDS ORDERED: VIMPAT200 MG PO (21:26)
== END 2022-11-29 | disposition still patient (30) ==
LOC: MKS.ESL.OT
DX: G80.9 Cerebral palsy, unspecified (principal)

== ENCOUNTER → 2022-12-06 | Outpatient (CLI) | payer MEDICARE, OTHER, MEDICAID | LOC: MHCPAIN 14:25 | DX: M79.604 Pain in right leg (principal); M15.0 Primary generalized (osteo)arthritis; M16.31 Unilateral osteoarthritis resulting from hip dysplasia, right hip; G80.9 Cerebral palsy, unspecified; G81.90 Hemiplegia, unspecified affecting unspecified side; R68.89 Other general symptoms and signs | CPT/HCPCS: G0463 ==

== ENCOUNTER 2023-02-15 09:24 | Outpatient (RCR) | payer MEDICARE, OTHER, MEDICAID ==
[~2023-02-15 09:24] MED LIST changes: +D3-5050000 IU PO; +LIORESAL 1010 MG/TAB; +MOBIC15 MG PO; +PLAVIX 75MG TAB75 MG PO; +VIMPAT200 MG PO
== END 2023-02-26 | disposition home or self-care (01) ==
LOC: MKS.ESL.PT
DX: G80.1 Spastic diplegic cerebral palsy (principal)

== ENCOUNTER 2023-06-20 09:00 | Outpatient (RCR) | payer MEDICARE, OTHER, MEDICAID | END 2023-06-29 | disposition home or self-care (01) | LOC: MKS.ESL.PT | DX: G80.1 Spastic diplegic cerebral palsy (principal) ==

== ENCOUNTER → 2023-08-16 | Outpatient (CLI) | payer MEDICARE, OTHER, MEDICAID ==
[2023-08-16 11:23] LABS: BASO % 0.2 % (0.0-2.0); EOS % 0.5 % (0.0-4.0); GRAN # 2.3 K/mm3 (1.4-6.5); GRAN % 55.5 % (42.2-75.2); HEMATOCRIT 39.1 % (37.0-47.0); HEMOGLOBIN 13.3 g/dl (12.5-16.0); LYMPH # 1.2 K/mm3 (1.2-3.4); LYMPH % 27.9 % (20.0-51.0); MEAN CELL VOLUME 94 fl (80.0-100.0); MEAN CORPUSCULAR HEMOGLOBIN 32 pg (27-31); MEAN CORPUSCULAR HGB CONC 34 g/dl (33.0-37.0); MEAN PLATELET VOLUME 9.1 fl (7.4-10.4); MONO # 0.7 K/mm3 (0.1-0.6); MONO % 15.7 % (1.7-9.3); PLATELET COUNT 171 K/mm3 (130-400); RED BLOOD COUNT 4.14 M/mm3 (4.10-5.30); REDCELL DISTRIBUTION WIDTH-CV 12.6 % (11.5-14.5)
[2023-08-16 11:43] LABS: ALBUMIN 3.5 gm/dL (3.4-4.8); BILIRUBIN,TOTAL 0.4 mg/dL (0.2-1.2); CALCIUM 9.6 mg/dL (8.4-10.2); CREATININE, serum 0.74 mg/dL (0.57-1.11); TOTAL PROTEIN 6.7 gm/dL (6.2-8.1); VALPROIC ACID (DEPAKENE) 67.8 ug/mL (43.5-90.5)
[2023-08-16 11:54] LABS: MAGNESIUM 1.6 mg/dL (1.6-2.6)
[2023-08-16 12:14] LABS: THYROID STIMULATING HORMONE 2.302 uIU/mL (0.350-4.940)
[2023-08-16 15:55] LABS: COLLECTION METHOD CLEAN CATCH
[2023-08-16 16:13] LABS: URINE APPEARANCE Cloudy (CLEAR/HAZY); URINE COLOR Yellow (YELLOW)
[2023-08-16 16:14] LABS: URINE BACTERIA Many /hpf (NONE SEEN); URINE BLOOD TRACE-LYSED (NEGATIVE); URINE GLUCOSE Negative (NEGATIVE); URINE KETONE Negative (NEGATIVE); URINE NITRATE Negative (NEGATIVE); URINE PROTEIN(semi-quant) Negative (NEGATIVE); URINE RBC 0-2 /hpf (0-2); URINE UROBILINOGEN 0.2 E.U/dL (0.2-1.0)
[2023-08-16 21:59] LABS: PHENOBARBITAL 30 ug/mL (15-40)
== END ==
LOC: COL.LAB 10:43 → COL.RAD 10:43
PROVIDERS: Internal Medicine
DX: M81.0 Age-related osteoporosis without current pathological fracture (principal); M15.0 Primary generalized (osteo)arthritis; G80.0 Spastic quadriplegic cerebral palsy; M41.25 Other idiopathic scoliosis, thoracolumbar region; K90.9 Intestinal malabsorption, unspecified; N39.46 Mixed incontinence; M54.51 Vertebrogenic low back pain; M54.6 Pain in thoracic spine; M25.371 Other instability, right ankle; M25.551 Pain in right hip; M25.552 Pain in left hip

== ENCOUNTER 2023-12-27 10:30 | Outpatient (RCR) | payer MEDICARE, OTHER, MEDICAID | END 2023-12-28 | disposition home or self-care (01) | LOC: MKS.ESL.PT | DX: M62.81 Muscle weakness (generalized) (principal); G80.1 Spastic diplegic cerebral palsy ==